=== PATIENT | male | born 1950 | race African-American/Black ===

== ENCOUNTER 2017-02-03 14:12 | Inpatient (IN) | payer OTHER, MEDICAID ==
[~2017-02-03] VITALS: Ht 185.4 cm; Wt 72.6 kg
[2017-02-03] MEDS ORDERED: SODIUM CHLORIDE 0.9% 1,000 ML IV ONE (14:27)
[2017-02-03] MEDS ORDERED: ASPIRIN 81MG TABLET PO ONE (14:45)
[2017-02-03] MEDS ORDERED: CLONIDINE 0.2MG TABLET PO ONE (14:45)
[2017-02-03 14:49] LABS: BASOPHILS % 0.8 % (0.0-2.0); EOSINOPHILS % 6.8 % (0.0-5.0); HEMATOCRIT. 36.7 % (42.0-52.0); HEMOGLOBIN. 12.3 g/dL (14.0-18.0); MEAN CORPUSCULAR HEMOGLOBIN 32.1 pg (28.0-32.0); MEAN CORPUSCULAR HGB CONC 33.6 g/dL (31.0-37.0); MEAN CORPUSCULAR VOLUME 95.6 fL (80.0-94.0); MEAN PLATELET VOLUME 6.9 fl (7.4-10.4); MONOCYTES % 12.5 % (2.0-8.0); NEUTROPHILS % 60.9 % (40.0-76.0); PLATELET 148 x1000/uL (130-400); RED BLOOD CELL COUNT 3.84 mill/uL (4.7-6.1); RED CELL DISTRIBUTION WIDTH 14.6 % (11.6-14.6); WHITE BLOOD COUNT 3.5 x1000/uL (4.5-11.0)
[2017-02-03 14:56] LABS: CHLORIDE 95 mEq/L (98-107); INDEX HEMOLYSI 1 (1-3); INDEX ICTERIC 1 (1-4); INDEX LIPEMIC 1 (1-3)
[2017-02-03 14:57] LABS: INR 1.1; PARTIAL THROMBOPLASTIN TIME 27.5 sec (24.0-34.0); PROTHROMBIN TIME 11.2 sec
[2017-02-03 14:58] LABS: ALBUMIN 4.1 g/dL (3.4-5.0); ANION GAP 21; CALCIUM 9.4 mg/dL (8.5-10.1); CARBON DIOXIDE 26 mEq/L (21-32); UREA NITROGEN BLOOD 65 mg/dL (7-21)
[2017-02-03 15:05] LABS: ALANINE AMINOTRANSFERASE 22 IU/L (13-61); CREATINE KINASE MB FRACTION 2.1 ng/mL (0.5-3.6); NT PRO B-TYPE NATRIURETIC PEP 12043 pg/mL (5-125); TROPONIN I < 0.02 ng/mL (0.00-0.04); eGFR 3 mL/min (>60)
[2017-02-03] MEDS ORDERED: ALBUTEROL (0.083%) 2.5MG/3ML NEB HHN ONE (15:30)
[2017-02-03] MEDS ORDERED: INSULIN REGULAR (HUMULIN R) 300UNITS/3ML IV ONE (15:30)
[2017-02-03] MEDS ORDERED: SODIUM POLYSTYRENE SULFONATE 15 G/60 ML BOT PO ONE (15:30)
[2017-02-03] MEDS ORDERED: DEXTROSE 50% WATER 50ML SYRINGE IV ONE ×3 (15:30→17:30)
[2017-02-03] MEDS ORDERED: SODIUM BICARBONATE 8.4% 1 MEQ/ML 50ML SYR IV ONE (15:30)
[2017-02-03] MEDS ORDERED: IPRATROPIUM/ALBUTEROL 0.5-3(2.5)MG/3ML NEB INH PRN (18:45)
[2017-02-03] MEDS ORDERED: DOCUSATE SODIUM 100MG CAPSULE PO PRN (18:45)
[2017-02-03] MEDS ORDERED: MAGNESIUM/ALUMINUM HYDROXIDE/SIMETHICONE 30ML UDC PO PRN (18:45)
[2017-02-03] MEDS ORDERED: ONDANSETRON HCL 4MG/2ML VIAL IV PRN (18:45)
[2017-02-03] MEDS ORDERED: ACETAMINOPHEN 325MG TABLET PO PRN (18:45)
[2017-02-03 19:08] VITALS: BP 160/104
[2017-02-03 20:00] VITALS: BP 145/104
[2017-02-03 20:05] LABS: CALCIUM 8.9 mg/dL (8.5-10.1); MAGNESIUM 2.4 mg/dL (1.8-2.4)
[2017-02-03 20:30] VITALS: BP 145/104
[2017-02-03] MEDS: HEPARIN 5000 UNITS/ML VIAL SUBCUT SCH (20:55)
[2017-02-03 21:59] LABS: *AMPHETAMINES SCREEN URINE NEGATIVE (NEGATIVE); *BARBITURATES SCREEN URINE NEGATIVE (NEGATIVE); *BENZODIAZEPINES SCREEN URINE NEGATIVE (NEGATIVE); *COCAINE SCREEN URINE NEGATIVE (NEGATIVE); CANNABINOID URINE SCREEN NEGATIVE (NEGATIVE); ECSTASY MDMA SCREEN URINE NEGATIVE (NEGATIVE); METHADONE URINE SCREEN NEGATIVE (NEGATIVE); OPIATES URINE SCREEN NEGATIVE (NEGATIVE); PHENCYCLIDINE URINE SCREEN NEGATIVE (NEGATIVE)
[2017-02-03] MEDS: CLONIDINE 0.1MG TABLET PO PRN (22:02)
[2017-02-03] MEDS ORDERED: DEXTROSE 50% WATER 50ML SYRINGE IV PRN (22:15)
[2017-02-03 23:56] LABS: CREATINE KINASE 494 IU/L (39-308); CREATINE KINASE MB FRACTION 1.7 ng/mL (0.5-3.6); INDEX HEMOLYSI 1 (1-3); TROPONIN I < 0.02 ng/mL (0.00-0.04)
[2017-02-04 04:00] VITALS: BP 109/82
[2017-02-04 06:44] LABS: ALANINE AMINOTRANSFERASE 17 IU/L (13-61); ALBUMIN 3.4 g/dL (3.4-5.0); ANION GAP 17; CALCIUM 8.6 mg/dL (8.5-10.1); CARBON DIOXIDE 28 mEq/L (21-32); CHLORIDE 97 mEq/L (98-107); CREATINE KINASE 469 IU/L (39-308); CREATINE KINASE MB FRACTION 1.6 ng/mL (0.5-3.6); HDL CHOLESTEROL 47 mg/dL (40-59); INDEX HEMOLYSI 1 (1-3); INDEX ICTERIC 1 (1-4); INDEX LIPEMIC 1 (1-3); LDL CHOLESTEROL 62 mg/dL (5-100); TRIGLYCERIDE 87 mg/dL (0-150); TROPONIN I < 0.02 ng/mL (0.00-0.04); UREA NITROGEN BLOOD 33 mg/dL (7-21); eGFR 6 mL/min (>60)
[2017-02-04] MEDS: BLOOD SUGAR DIAGNOSTIC STRIP TEST SCH ×4 (06:47→21:51)
[2017-02-04] MEDS: INSULIN LISPRO 100 UNITS/ML SUBCUT SCH ×4 (07:50→21:00)
[2017-02-04 08:00] VITALS: BP 105/64
[2017-02-04] MEDS: HEPARIN 5000 UNITS/ML VIAL SUBCUT SCH ×2 (09:58→20:40)
[2017-02-04] MEDS: ASPIRIN 81MG EC TABLET PO SCH (10:01)
[2017-02-04 12:00] VITALS: BP 129/84
[2017-02-04] MEDS ORDERED: HYDROCODONE/ACETAMINOPHEN 5/325MG TABLET PO PRN (14:30)
[2017-02-04 16:00] VITALS: BP 128/92
[2017-02-04] MEDS: HYDROXYZINE 25MG TABLET PO PRN (18:10)
[2017-02-04 20:00] VITALS: BP 134/79
[2017-02-05] VITALS: BP 135/95
[2017-02-05 04:00] VITALS: BP 127/85
[2017-02-05] MEDS: HYDROXYZINE 25MG TABLET PO PRN ×2 (04:19→11:15)
[2017-02-05] MEDS: BLOOD SUGAR DIAGNOSTIC STRIP TEST SCH ×3 (06:21→18:03)
[2017-02-05] MEDS: INSULIN LISPRO 100 UNITS/ML SUBCUT SCH ×3 (07:50→17:50)
[2017-02-05 07:53] LABS: ALANINE AMINOTRANSFERASE 15 IU/L (13-61); ALBUMIN 3.5 g/dL (3.4-5.0); ANION GAP 18; CARBON DIOXIDE 30 mEq/L (21-32); CHLORIDE 97 mEq/L (98-107); INDEX HEMOLYSI 1 (1-3); INDEX ICTERIC 1 (1-4); INDEX LIPEMIC 1 (1-3); UREA NITROGEN BLOOD 41 mg/dL (7-21); eGFR 4 mL/min (>60)
[2017-02-05 08:00] VITALS: BP 134/86
[2017-02-05] MEDS: ASPIRIN 81MG EC TABLET PO SCH (09:00)
[2017-02-05] MEDS: HEPARIN 5000 UNITS/ML VIAL SUBCUT SCH (09:00)
[2017-02-05 12:00] VITALS: BP 126/68
[2017-02-05 16:15] VITALS: BP 146/71
[2017-02-05 20:00] VITALS: BP 153/101
[2017-02-05] MEDS: CLONIDINE 0.1MG TABLET PO PRN (20:14)
== END 2017-02-05 20:45 | disposition home or self-care (01) | DRG 640 ==
LOC: ER 14:24 → 6WST 15:40
PROVIDERS: ADMIT Internal Medicine; ATTEND Internal Medicine
PROC: 5A1D60Z (ICD-10-PCS; principal; 2017-02-04)
DX: E87.5 Hyperkalemia (principal); N18.6 End stage renal disease; I12.0 Hypertensive chronic kidney disease with stage 5 chronic kidney disease or end stage renal disease; R55 Syncope and collapse; E87.0 Hyperosmolality and hypernatremia; B02.9 Zoster without complications; D64.9 Anemia, unspecified; E11.22 Type 2 diabetes mellitus with diabetic chronic kidney disease; G47.01 Insomnia due to medical condition; Z99.2 Dependence on renal dialysis
CPT/HCPCS: 36415; 71010; 80048; 80053; 80061; 80305; 82550; 82553; 82962; 83735; 83880; 84132; 84443; 84484; 85025; 85610; 85730; 87040; 93005; 93306; 93970; 94640; 96360; 96361; 99285; J1644; J1815; J3490; J7030; J7611